=== PATIENT | male | born 1980 | race Two or more races ===

== ENCOUNTER 2018-04-12 15:24 | Emergency (ER) | payer OTHER ==
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
== END 2018-04-12 17:42 | disposition home or self-care (01) ==
LOC: JD.ED 15:24
DX: T59.6X1A Toxic effect of hydrogen sulfide, accidental (unintentional), initial encounter (principal); R55 Syncope and collapse; Y99.0 Civilian activity done for income or pay; Z87.891 Personal history of nicotine dependence
CPT/HCPCS: 36600; 82375; 82803; 99284